=== PATIENT | male | born 2000 | race Caucasian/White ===

== ENCOUNTER 2021-07-10 23:15 | Emergency (ER) | payer SELFPAY ==
[2021-07-10 23:18] VITALS: BP 174/109; PULSE 91; RESP 32; TEMP 36.7; O2SAT 97; BMI 31.5
[2021-07-10] MEDS: ipratropium-albuterol 3 mL Neb INHALATION (23:21)
[2021-07-10 23:22] VITALS: PULSE 87; RESP 22; O2SAT 87
[2021-07-10 23:26] VITALS: PULSE 88
[2021-07-10 23:31] VITALS: BP 152/96; PULSE 78; RESP 20; O2SAT 95
[2021-07-10 23:35] VITALS: O2SAT 95
--- NOTE | 2021-07-10 23:40 | XRR_ITS ---
PROCEDURE INFORMATION: Exam: XR Chest Exam date and time: 07/10/2021 11:40 PM Age: 21 years old Clinical indication: Dyspnea; Additional info: SOB TECHNIQUE: Imaging protocol: XR of the chest. Views: 1 view. COMPARISON: CR Chest 1 [place] [id number] 03/29/2015 11:21 PM FINDINGS: Lungs: Unremarkable. No consolidation. Pleural spaces: Unremarkable. No pleural effusion. No pneumothorax. Heart/Mediastinum: Unremarkable. No cardiomegaly. Bones/joints: Unremarkable. XR/XR chest 1V portable [id number] IMPRESSION: No acute findings.
--- NOTE | 2021-07-10 23:41 | ECG_ITS ---
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
[2021-07-10] MEDS: sodium chloride 0.9% 1,000 ML 999 ML IV (23:46)
[2021-07-11 00:13] LABS: Basophils # 0.2 10^3/uL (0.0-0.1); Basophils % 1.1 %; Eosinophils # 0.7 10^3/uL (0.0-0.8); Hematocrit 48.6 % (42.0-52.0); Hemoglobin 16.1 g/dL (11.7-16.6); Lymphocytes # 4.1 10^3/uL (0.8-4.8); Lymphocytes % 31.3 %; Mean Corpuscular HGB Conc 33.1 g/dL (30.0-36.0); Mean Corpuscular Hemoglobin 27.7 pg (28.0-34.0); Mean Corpuscular Volume 83.6 fl (80-94); Mean Platelet Volume 11.4 fL (7.4-10.4); Monocytes % 7.9 %; Neutrophils # 7.21 10^3/uL (1.8-7.7); Neutrophils % 54.4 %; Nucleated Red Blood Cells % 0 %; Platelet Count 257 10^3/cmm (130-400); Red Blood Count 5.81 10^6/uL (4.1-5.3); Red Cell Distribution Width 12.2 % (12.1-15.1); White Blood Count 13.2 10^3/uL (4.0-10.0)
[2021-07-11 00:21] LABS: D Dimer <= 0.27 ug/mIFEU (0-0.59)
[2021-07-11 00:33] LABS: Lactate (Lactic Acid level) 1.8 mmol/L (0.5-2.2)
[2021-07-11 00:41] LABS: NT Pro B Type Natriuretic Pept 55 pg/mL (0-125); Procalcitonin 0.05 ng/mL (0-0.5)
--- NOTE | 2021-07-11 00:42 | W.ED.ALLEREA ---
HPI - Allergic Reaction General: Chief complaint: Allergic Reaction Stated complaint: Asthma attack Time Seen by Provider: 07/10/21 23:20 History of Present Illness: HPI narrative: 21-year-old male with a history of asthma since childhood. He, though, has not had an asthma attack for the past 4 to 6 years he notes some asthma symptoms 2 days ago while cleaning out a house. He was not exposed to that house for very long. He spent most of the day there today, with worsening respiratory symptoms throughout the day. He presents in respiratory distress with wheezing, and decreased air movement. He did not have rescue inhaler to use. Onset (ago): hour(s) Exposure: unknown Known history of allergy to: Multiple allergies Associated symptoms: Reports difficulty breathing and nausea; Deny dysphagia, facial swelling, lip swelling, rash, tongue swelling or vomiting Severity: severe Treatment prior to arrival: none Previous Allergic Reaction History: other Review of Systems Const: Denies: fever(s) or chills Eyes: Denies: change in vision Card: Reports: chest pain; Denies: palpitations Resp: Reports: dyspnea and non-productive cough; Denies: productive cough GI: Reports: nausea; Denies: vomiting or dysphagia All/Imm: Denies: tongue swelling or facial swelling Physical Exam Const: COMMON NORMALS: patient oriented x3 and alert GENERAL APPEARANCE: in distress and ill appearing HENMT: COMMON NORMALS: normocephalic and atraumatic HEAD & SCALP: normocephalic and atraumatic Chest: COMMONS NORMALS: normal inspection of the chest Resp: EFFORT & INSPECTION: Yes tachypneic, Yes respiratory distress and Yes uses accessory muscles AUSCULTATION: wheezes Cardio: COMMON NORMALS: regular rhythm RATE: tachycardic RHYTHM: regular rhythm GI: COMMON NORMALS: Normal to inspection, nondistended, normoactive bowel sounds present and Soft to palpation PALPATION: Yes Soft to palpation Extremity: COMMON NORMALS: normal to inspection Neuro: COMMON NORMALS: patient oriented x3 SENSORIUM/ORIENTATION: Yes alert Course Vital Signs: Vital signs: Vital Signs Temperature 98.1 F 07/10/21 23:18 Pulse Rate 77 07/11/21 02:19 Respiratory Rate 20 H 07/11/21 02:19 Blood Pressure 131/82 07/11/21 02:19 Pulse Oximetry 99 07/11/21 02:19 MDM - Allergic Reaction MDM Narrative: Medical decision making narrative: Patient is improved significantly after albuterol/Atrovent treatment. Current vital signs are pulse ox 97% with 18 respirations. Sinus rhythm 84, blood pressure 125/72. He still having some mild chest discomfort, but much improved after breathing treatment. He is received Solu-Medrol. No signs of rebound currently. He does not have a rescue inhaler at home, so he will be sent home with 1. We will also place him on a steroid burst. Chest x-ray is negative. Lab Data: Labs: Lab Results 07/10/21 07/10/21 07/10/21 Range/Units 23:20 23:20 23:20 WBC 13.2 H (4.0-10.0) 10^3/ uL RBC 5.81 H (4.1-5.3) 10^6/u L Hgb 16.1 (11.7-16.6) g/dL Hct 48.6 (42.0-52.0) % MCV 83.6 (80-94) fl MCH 27.7 L (28.0-34.0) pg MCHC 33.1 (30.0-36.0) g/dL RDW 12.2 (12.1-15.1) % Plt Count 257 (130-400) 10^3/c mm MPV 11.4 H (7.4-10.4) fL Neut % (Auto) 54.4 % Lymph % (Auto) 31.3 % [place] % (Auto) 7.9 % Eos % (Auto) 5.0 % Baso % (Auto) 1.1 % Neut # (Auto) 7.21 (1.8-7.7) 10^3/u L Lymph # (Auto) 4.1 (0.8-4.8) 10^3/u L [place] # (Auto) 1.0 H (0.2-0.9) 10^3/u L Eos # (Auto) 0.7 (0.0-0.8) 10^3/u L Baso # (Auto) 0.2 H (0.0-0.1) 10^3/u L Nucleated RBC % (a uto) 0 % Nucleated RBCs # 0.0 /100WBC D-Dimer <= 0.27 (0-0.59) ug/mIFE U Sodium 137 (136-145) mmol/L Potassium 3.9 (3.5-5.1) mmol/L Chloride 99 (98-107) mmol/L Carbon Dioxide 25 (22-29) mmol/L Anion Gap 16.9 (5-19) BUN 10 (6-20) mg/dL Creatinine 1.1 (0.7-1.2) mg/dL GFR Calculation 84.5 L (90-130) mL/min Glucose 79 (65-115) mg/dL Calculated Osmolal ity 282 L (285-295) mOsm/k g Lactate (0.5-2.2) mmol/L Calcium 9.4 (8.5-10.5) mg/dL Total Bilirubin 0.4 (0.15-1.2) mg/dL AST 18 (0-40) U/L ALT 23 (0-41) U/L Alkaline Phosphata se 98 (40-130) IU/L Creatine Kinase 112 (39-308) U/L C-Reactive Protein 3.8 (0.0-4.9) mg/L NT-Pro-B Natriuret Pep 55 (0-125) pg/mL Total Protein 7.1 (6.6-8.7) g/dL Albumin 4.3 (3.5-5.2) g/dL Globulin 2.8 (1.3-4.6) g/dL Procalcitonin 0.05 (0-0.5) ng/mL Urine Color (Yellow) Urine Appearance (CLEAR) Urine pH (5-7) Ur Specific Gravit y (1.005-1.030) Urine Protein (Negative) Urine Glucose (UA) (Normal) Urine Ketones (Negative) Urine Blood (Negative) Urine Nitrate (Negative) Urine Bilirubin (Negative) Urine Urobilinogen (Negative) mg/dL Ur Leukocyte Shannon ase (Negative) Urine Opiates Scre en (Negative) ng/mL Ur Barbiturates Sc reen (Negative) ng/mL Ur Phencyclidine S crn (Negative) ng/mL Ur Amphetamines Sc reen (Negative) ng/mL U Benzodiazepines Scrn (Negative) ng/mL Urine Cocaine Scre en (Negative) ng/mL U Marijuana (THC) Screen (Negative) ng/mL 07/10/21 07/11/21 07/11/21 Range/Units 23:20 00:40 00:40 WBC (4.0-10.0) 10^3/ uL RBC (4.1-5.3) 10^6/u L Hgb (11.7-16.6) g/dL Hct (42.0-52.0) % MCV (80-94) fl MCH (28.0-34.0) pg MCHC (30.0-36.0) g/dL RDW (12.1-15.1) % Plt Count (130-400) 10^3/c mm MPV (7.4-10.4) fL Neut % (Auto) % Lymph % (Auto) % [place] % (Auto) % Eos % (Auto) % Baso % (Auto) % Neut # (Auto) (1.8-7.7) 10^3/u L Lymph # (Auto) (0.8-4.8) 10^3/u L [place] # (Auto) (0.2-0.9) 10^3/u L Eos # (Auto) (0.0-0.8) 10^3/u L Baso # (Auto) (0.0-0.1) 10^3/u L Nucleated RBC % (a uto) % Nucleated RBCs # /100WBC D-Dimer (0-0.59) ug/mIFE U Sodium (136-145) mmol/L Potassium (3.5-5.1) mmol/L Chloride (98-107) mmol/L Carbon Dioxide (22-29) mmol/L Anion Gap (5-19) BUN (6-20) mg/dL Creatinine (0.7-1.2) mg/dL GFR Calculation (90-130) mL/min Glucose (65-115) mg/dL Calculated Osmolal ity (285-295) mOsm/k g Lactate 1.8 (0.5-2.2) mmol/L Calcium (8.5-10.5) mg/dL Total Bilirubin (0.15-1.2) mg/dL AST (0-40) U/L ALT (0-41) U/L Alkaline Phosphata se (40-130) IU/L Creatine Kinase (39-308) U/L C-Reactive Protein (0.0-4.9) mg/L NT-Pro-B Natriuret Pep (0-125) pg/mL Total Protein (6.6-8.7) g/dL Albumin (3.5-5.2) g/dL Globulin (1.3-4.6) g/dL Procalcitonin (0-0.5) ng/mL Urine Color Yellow (Yellow) Urine Appearance Clear (CLEAR) Urine pH 7 (5-7) Ur Specific Gravit y 1.015 (1.005-1.030) Urine Protein Neg (Negative) Urine Glucose (UA) Norm (Normal) Urine Ketones Negative (Negative) Urine Blood Neg (Negative) Urine Nitrate Negative (Negative) Urine Bilirubin Neg (Negative) Urine Urobilinogen Norm (Negative) mg/dL Ur Leukocyte [place] ase Negative (Negative) Urine Opiates Scre en Negative (Negative) ng/mL Ur Barbiturates Sc reen Negative (Negative) ng/mL Ur Phencyclidine S crn Negative (Negative) ng/mL Ur Amphetamines Sc reen Negative (Negative) ng/mL U Benzodiazepines Scrn Negative (Negative) ng/mL Urine Cocaine Scre en Negative (Negative) ng/mL U Marijuana (THC) Screen Negative (Negative) ng/mL Discharge Plan Discharge Patient Disposition: Home Clinical Impression: Acute asthma exacerbation Qualifiers: Asthma persistence: unspecified Condition: Stable Prescriptions: New Medrol (Homer) 4 mg tablets,dose pack See Rx Instructions .ROUTE .COMPLEX Qty: 21 RF: 0 Discharge Orders: Discharge ED (Routine); Ordered 07/11/21 Ordered By: Abiodun Crum Discharge Diet: Advance as tolerated Discharge Activity: Increase activity as tolerated Patient Instructions: Asthma (ED) Activity Restrictions/Additional Instructions: Return for return of shortness of breath, wheezing, chest discomfort, any other concerns despite treatment. Use your rescue inhaler every 4 hours while awake for the next 24 hours, then as needed. Coding Level of Care Code ED [employer] for Clarence Fwd Exam Detailed
[2021-07-11 00:51] LABS: Add Urine Microscopic? NO; Charge for UA Resulting for Rev
[2021-07-11 00:52] LABS: Alanine Aminotransferase 23 U/L (0-41); Albumin Level 4.3 g/dL (3.5-5.2); Alkaline Phosphatase 98 IU/L (40-130); Aspartate Amino Transferase 18 U/L (0-40); Blood Urea Nitrogen 10 mg/dL (6-20); C Reactive Protein 3.8 mg/L (0.0-4.9); Calcium 9.4 mg/dL (8.5-10.5); Carbon Dioxide 25 mmol/L (22-29); Chloride 99 mmol/L (98-107); Creatine Phosphokinase 112 U/L (39-308); Globulin 2.8 g/dL (1.3-4.6); Glomerular Filtration Rate 84.5 mL/min (90-130); Glucose 79 mg/dL (65-115); Osmolality Calculated 282 mOsm/kg (285-295); Sodium 137 mmol/L (136-145); Total Bilirubin 0.4 mg/dL (0.15-1.2); Total Protein 7.1 g/dL (6.6-8.7)
[2021-07-11 00:56] LABS: Bilirubin Urine Neg (Negative); Blood Urine Neg (Negative); Glucose Urine UA Norm (Normal); Ketones Urine Negative (Negative); Leukocyte Esterase Urine Negative (Negative); Nitrate Urine Negative (Negative); Protein Urine Neg (Negative); Specific Gravity, Urine 1.015 (1.005-1.030); Urine Appearance Clear (CLEAR); Urine Color Yellow (Yellow); Urobilinogen Urine Norm (Negative); pH Urine 7 (5-7)
[2021-07-11 00:59] LABS: Anion Gap 16.9 (5-19); Potassium 3.9 mmol/L (3.5-5.1)
[2021-07-11 01:04] LABS: Amphetamines Screen Urine Negative (Negative); Barbiturates Screen Urine Negative (Negative); Benzodiazepines Screen Urine Negative (Negative); Cocaine Screen Urine Negative (Negative); Opiate Screen Urine Negative (Negative); PCP Screen Urine Negative (Negative); THC Screen Urine Negative (Negative)
[2021-07-11] MEDS: ketorolac 30 mg/mL INJ 15 MG IVP (01:07)
[2021-07-11 02:19] VITALS: BP 131/82; PULSE 77; RESP 20; O2SAT 99
== END 2021-07-11 02:13 | disposition home or self-care (01) ==
PROVIDERS: Emergency Provider Emergency Medicine
DX: J45.901 Unspecified asthma with (acute) exacerbation (principal)
CPT/HCPCS: 71045; 80053; 80306; 81003; 82550; 83605; 83880; 84145; 85025; 85378; 86140; 93005; 94640; 96361; 96374; 96375; 99284; J1885; J2930; J7030

== ENCOUNTER 2021-12-06 07:20 | Emergency (ER) | payer SELFPAY ==
[2021-12-06 07:47] VITALS: BP 155/100; PULSE 75; RESP 15; TEMP 36.6; O2SAT 95; BMI 34.4
--- NOTE | 2021-12-06 07:53 | W.ED.NAVMDI ---
Documented by User: HARDEEP Gruber 12/06/21 09:29 HPI - Nausea/Vomiting/Diarrhea General: Chief complaint: Nausea/Vomiting/Diarrhea Stated complaint: N/V non stop for 5 days Time Seen by Provider: 12/06/21 07:25 Source: patient Mode of arrival: ambulatory Limitations: no limitations History of Present Illness: Patient is a 21-year-old male who presents to ED today with a complaint of nausea, vomiting, diarrhea over the past 4 days. Patient states he vomits/dry heaves after eating anything. He states he is having approximately 3-4 episodes of non-bloody diarrhea daily. No blood noted to his emesis. He is not running fevers. When asked about abdominal pain he states is stomach feels bubbly . No sick contacts. No poor food exposures. No previous episodes. No previous abdominal surgeries. States he feels slightly dizzy and weak secondary to not eating much over the last few days. MD elicited complaint: nausea, vomiting and diarrhea Onset (ago): day(s) Associated nausea: Yes Associated abdominal pain: Yes Location of pain: Diffuse Pain consistency: intermittent Severity: moderate Exacerbating factors: eating Relieving factors: none Associated symtoms: Reports dizziness and nausea; Denies change in vision, chest pain, dysuria, fatigue, headache(s) or malaise Review of Systems Const: Denies: fever(s), chills, body aches, fatigue or malaise Eyes: Denies: change in vision or blurry vision Card: Denies: chest pain Resp: Denies: dyspnea GI: Reports: abdominal pain, nausea, vomiting and diarrhea; Denies: hematemesis, pain on defecation, hematochezia or melena : Denies: flank pain, difficulty urinating or dysuria Musc: Denies: neck pain, back pain or joint pain Skin/Breast: Denies: rash Neuro: Reports: dizziness; Denies: headache(s), numbness in extremities, weakness in extremities, sensory changes, lack of coordination, difficulty walking, confusion, behavioral changes, Slurred speech present or difficulty communicating thoughts Physical Exam Const: COMMON NORMALS: no acute distress, patient oriented x3, no limitations and alert GENERAL APPEARANCE: cooperative NUTRITIONAL APPEARANCE: overweight ORIENTATION/CONSCIOUSNESS: Yes awake, Yes oriented to person, Yes oriented to place and Yes oriented to time HENMT: COMMON NORMALS: normocephalic and atraumatic HEAD & SCALP: normocephalic and atraumatic Resp: COMMON NORMALS: normal respiratory effort and clear to auscultation bilaterally AUSCULTATION: clear to auscultation bilaterally Cardio: COMMON NORMALS: regular rate and regular rhythm RATE: regular rate RHYTHM: regular rhythm GI: COMMON NORMALS: Normal to inspection, nondistended, normoactive bowel sounds present, Soft to palpation, No hepatosplenomegaly present and no masses INSPECTION: Yes normal to inspection PALPATION: Yes Soft to palpation, Yes Tenderness to palpation present (GI) (very mild diffusely-non surgical abdomen), No Guarding due to palpation present (GI), No Rigid due to palpation and Yes No hepatosplenomegaly present : COMMON NORMALS: Yes no CVA tenderness BLADDER/KIDNEY EXAM: Yes no CVA tenderness Back/Pelvis: COMMON NORMALS: no CVA tenderness Extremity: COMMON NORMALS: normal to inspection GENERAL: Yes normal exam except as noted Neuro: GARRET COMA SCALE: document GCS findings Garret coma scale eye opening: Spontaneous Garret coma scale verbal response: Orientated Garret coma scale motor response: Obey commands [place] coma scale total score: 15 COMMON NORMALS: patient oriented x3 SENSORIUM/ORIENTATION: Yes alert, Yes oriented to person, Yes oriented to place and Yes oriented to time Skin: COMMON NORMALS: no rashes or lesions noted GENERAL SKIN EXAM: no rashes or lesions noted Course Vital Signs: Vital signs: Vital Signs Temperature 97.8 F 12/06/21 07:47 Pulse Rate 75 12/06/21 07:47 Respiratory Rate 15 12/06/21 07:47 Blood Pressure 155/100 12/06/21 07:47 Pulse Oximetry 95 12/06/21 07:47 MDM - Nausea/Vomiting/Diarrhea Medical Decision Making Patient clinically appears in no acute distress. He has not had any episodes of vomiting or diarrhea while here. His vital signs are stable. Lab work overall is unremarkable. He was given fluids and IV Zofran and states his nausea has improved. At this point we will treat patient conservatively at home for possible gastroenteritis/enterocolitis-like symptoms. Strict return ED precautions verbally given to patient. Lab Data : 12/06/21 08:06 12/06/21 08:06 Laboratory Results WBC 7.7 10^3/uL (4.0-10.0) 12/06/21 08:06 RBC 6.18 10^6/uL (4.1-5.3) H 12/06/21 08:06 Hgb 17.2 g/dL (11.7-16.6) H 12/06/21 08:06 Hct 52.0 % (42.0-52.0) 12/06/21 08:06 MCV 84.1 fl (80-94) 12/06/21 08:06 MCH 27.8 pg (28.0-34.0) L 12/06/21 08:06 MCHC 33.1 g/dL (30.0-36.0) 12/06/21 08:06 RDW 12.4 % (12.1-15.1) 12/06/21 08:06 Plt Count 283 10^3/cmm (130-400) 12/06/21 08:06 MPV 10.7 fL (7.4-10.4) H 12/06/21 08:06 Neut % (Auto) 52.0 % 12/06/21 08:06 Lymph % (Auto) 35.5 % 12/06/21 08:06 [place] % (Auto) 7.7 % 12/06/21 08:06 Eos % (Auto) 3.4 % 12/06/21 08:06 Baso % (Auto) 1.0 % 12/06/21 08:06 Neut # (Auto) 4.01 10^3/uL (1.8-7.7) 12/06/21 08:06 Lymph # (Auto) 2.7 10^3/uL (0.8-4.8) 12/06/21 08:06 [place] # (Auto) 0.6 10^3/uL (0.2-0.9) 12/06/21 08:06 Eos # (Auto) 0.3 10^3/uL (0.0-0.8) 12/06/21 08:06 Baso # (Auto) 0.1 10^3/uL (0.0-0.1) 12/06/21 08:06 Nucleated RBC % (auto) 0 % 12/06/21 08:06 Nucleated RBCs # 0.0 /100WBC 12/06/21 08:06 Sodium 137 mmol/L (136-145) 12/06/21 08:06 Potassium 3.9 mmol/L (3.5-5.1) 12/06/21 08:06 Chloride 100 mmol/L (98-107) 12/06/21 08:06 Carbon Dioxide 28 mmol/L (22-29) 12/06/21 08:06 Anion Gap 12.9 (5-19) 12/06/21 08:06 BUN 9 mg/dL (6-20) 12/06/21 08:06 Creatinine 0.8 mg/dL (0.7-1.2) 12/06/21 08:06 GFR Calculation 122.0 mL/min (90-130) 12/06/21 08:06 Glucose 86 mg/dL (65-115) 12/06/21 08:06 Calculated Osmolality 282 mOsm/kg (285-295) L 12/06/21 08:06 Calcium 9.3 mg/dL (8.5-10.5) 12/06/21 08:06 Total Bilirubin 0.3 mg/dL (0.15-1.2) 12/06/21 08:06 AST 30 U/L (0-40) 12/06/21 08:06 ALT 42 U/L (0-41) H 12/06/21 08:06 Alkaline Phosphatase 122 IU/L (40-130) 12/06/21 08:06 Total Protein 7.4 g/dL (6.6-8.7) 12/06/21 08:06 Albumin 4.5 g/dL (3.5-5.2) 12/06/21 08:06 Globulin 2.9 g/dL (1.3-4.6) 12/06/21 08:06 Lipase 70 U/L (13-60) H 12/06/21 08:06 Urine Color Yellow (Yellow) 12/06/21 09:50 Urine Appearance Clear (CLEAR) 12/06/21 09:50 Urine pH 5 (5-7) 12/06/21 09:50 Ur Specific [place] 1.025 (1.005-1.030) 12/06/21 09:50 Urine Protein Neg (Negative) 12/06/21 09:50 Urine Glucose (UA) Norm (Normal) 12/06/21 09:50 Urine Ketones Negative (Negative) 12/06/21 09:50 Urine Blood Neg (Negative) 12/06/21 09:50 Urine Nitrate Negative (Negative) 12/06/21 09:50 Urine Bilirubin Neg (Negative) 12/06/21 09:50 Urine Urobilinogen Norm mg/dL (Negative) 12/06/21 09:50 Ur Leukocyte Esterase Negative (Negative) 12/06/21 09:50 Discharge Plan Discharge Patient Disposition: Home Clinical Impression: Gastroenteritis Condition: Stable Prescriptions: New Zofran 4 mg tablet 4 mg PO Q6H PRN (Reason: nausea and vomiting) Qty: 14 0RF No Action Medrol (Homer) 4 mg tablets,dose pack See Rx Instructions .ROUTE .COMPLEX Qty: 21 0RF Rx Instructions: orally per package directions Discharge Orders: Discharge ED (Routine); Ordered 12/06/21 Ordered By: Mitzi Love Patient Instructions: Gastroenteritis (ED) Activity Restrictions/Additional Instructions: As we discussed you may use the Zofran as needed for nausea and vomiting. Bennett liquid diet over the next 24 to 48 hours and advance as tolerated. You need to return to the emergency department for uncontrollable episodes of vomiting or diarrhea, increasing weakness, blood in your vomit or stool, fevers, severe abdominal pains, or any other concerns you may have. I hope you begin to feel better soon. Coding Level of Care Code ED Associate Professor Of Radiology for Chg Fwd Exam Comprehensive Documented by User: Maurice Brown DO 12/06/21 12:54 HPI - Nausea/Vomiting/Diarrhea General: Chief complaint: Nausea/Vomiting/Diarrhea Stated complaint: N/V non stop for 5 days Time Seen by Provider: 12/06/21 07:25 Physical Exam Neuro: GARRET COMA SCALE: document GCS findings [place] coma scale total score: 15 Course Vital Signs: Vital signs: Vital Signs Temperature 97.8 F 12/06/21 07:47 Pulse Rate 75 12/06/21 07:47 Respiratory Rate 15 12/06/21 07:47 Blood Pressure 155/100 12/06/21 07:47 Pulse Oximetry 95 12/06/21 07:47 MDM - Nausea/Vomiting/Diarrhea Medical Decision Making Patient clinically appears in no acute distress. He has not had any episodes of vomiting or diarrhea while here. His vital signs are stable. Lab work overall is unremarkable. He was given fluids and IV Zofran and states his nausea has improved. At this point we will treat patient conservatively at home for possible gastroenteritis/enterocolitis-like symptoms. Strict return ED precautions verbally given to patient. Chart reviewed and patient discussed with midlevel. Agree with assessment and plan. Lab Data : 12/06/21 08:06 12/06/21 08:06 Laboratory Results WBC 7.7 10^3/uL (4.0-10.0) 12/06/21 08:06 RBC 6.18 10^6/uL (4.1-5.3) H 12/06/21 08:06 Hgb 17.2 g/dL (11.7-16.6) H 12/06/21 08:06 Hct 52.0 % (42.0-52.0) 12/06/21 08:06 MCV 84.1 fl (80-94) 12/06/21 08:06 MCH 27.8 pg (28.0-34.0) L 12/06/21 08:06 MCHC 33.1 g/dL (30.0-36.0) 12/06/21 08:06 RDW 12.4 % (12.1-15.1) 12/06/21 08:06 Plt Count 283 10^3/cmm (130-400) 12/06/21 08:06 MPV 10.7 fL (7.4-10.4) H 12/06/21 08:06 Neut % (Auto) 52.0 % 12/06/21 08:06 Lymph % (Auto) 35.5 % 12/06/21 08:06 [place] % (Auto) 7.7 % 12/06/21 08:06 Eos % (Auto) 3.4 % 12/06/21 08:06 Baso % (Auto) 1.0 % 12/06/21 08:06 Neut # (Auto) 4.01 10^3/uL (1.8-7.7) 12/06/21 08:06 Lymph # (Auto) 2.7 10^3/uL (0.8-4.8) 12/06/21 08:06 [place] # (Auto) 0.6 10^3/uL (0.2-0.9) 12/06/21 08:06 Eos # (Auto) 0.3 10^3/uL (0.0-0.8) 12/06/21 08:06 Baso # (Auto) 0.1 10^3/uL (0.0-0.1) 12/06/21 08:06 Nucleated RBC % (auto) 0 % 12/06/21 08:06 Nucleated RBCs # 0.0 /100WBC 12/06/21 08:06 Sodium 137 mmol/L (136-145) 12/06/21 08:06 Potassium 3.9 mmol/L (3.5-5.1) 12/06/21 08:06 Chloride 100 mmol/L (98-107) 12/06/21 08:06 Carbon Dioxide 28 mmol/L (22-29) 12/06/21 08:06 Anion Gap 12.9 (5-19) 12/06/21 08:06 BUN 9 mg/dL (6-20) 12/06/21 08:06 Creatinine 0.8 mg/dL (0.7-1.2) 12/06/21 08:06 GFR Calculation 122.0 mL/min (90-130) 12/06/21 08:06 Glucose 86 mg/dL (65-115) 12/06/21 08:06 Calculated Osmolality 282 mOsm/kg (285-295) L 12/06/21 08:06 Calcium 9.3 mg/dL (8.5-10.5) 12/06/21 08:06 Total Bilirubin 0.3 mg/dL (0.15-1.2) 12/06/21 08:06 AST 30 U/L (0-40) 12/06/21 08:06 ALT 42 U/L (0-41) H 12/06/21 08:06 Alkaline Phosphatase 122 IU/L (40-130) 12/06/21 08:06 Total Protein 7.4 g/dL (6.6-8.7) 12/06/21 08:06 Albumin 4.5 g/dL (3.5-5.2) 12/06/21 08:06 Globulin 2.9 g/dL (1.3-4.6) 12/06/21 08:06 Lipase 70 U/L (13-60) H 12/06/21 08:06 Urine Color Yellow (Yellow) 12/06/21 09:50 Urine Appearance Clear (CLEAR) 12/06/21 09:50 Urine pH 5 (5-7) 12/06/21 09:50 Ur Specific [place] 1.025 (1.005-1.030) 12/06/21 09:50 Urine Protein Neg (Negative) 12/06/21 09:50 Urine Glucose (UA) Norm (Normal) 12/06/21 09:50 Urine Ketones Negative (Negative) 12/06/21 09:50 Urine Blood Neg (Negative) 12/06/21 09:50 Urine Nitrate Negative (Negative) 12/06/21 09:50 Urine Bilirubin Neg (Negative) 12/06/21 09:50 Urine Urobilinogen Norm mg/dL (Negative) 12/06/21 09:50 Ur Leukocyte Esterase Negative (Negative) 12/06/21 09:50 Discharge Plan Discharge Patient Disposition: Home Clinical Impression: Gastroenteritis Condition: Stable Prescriptions: New Zofran 4 mg tablet 4 mg PO Q6H PRN (Reason: nausea and vomiting) Qty: 14 0RF No Action Medrol (Homer) 4 mg tablets,dose pack See Rx Instructions .ROUTE .COMPLEX Qty: 21 0RF Rx Instructions: orally per package directions Discharge Orders: Discharge ED (Routine); Ordered 12/06/21 Ordered By: Mitzi Love Patient Instructions: Gastroenteritis (ED) Activity Restrictions/Additional Instructions: As we discussed you may use the Zofran as needed for nausea and vomiting. Bennett liquid diet over the next 24 to 48 hours and advance as tolerated. You need to return to the emergency department for uncontrollable episodes of vomiting or diarrhea, increasing weakness, blood in your vomit or stool, fevers, severe abdominal pains, or any other concerns you may have. I hope you begin to feel better soon. Coding Level of Care Code ED Associate Professor Of Radiology for Clarence Fwtracey Exam Comprehensive
[2021-12-06 08:18] LABS: Basophils # 0.1 10^3/uL (0.0-0.1); Eosinophils # 0.3 10^3/uL (0.0-0.8); Eosinophils % 3.4 %; Hemoglobin 17.2 g/dL (11.7-16.6); Lymphocytes # 2.7 10^3/uL (0.8-4.8); Lymphocytes % 35.5 %; Mean Corpuscular HGB Conc 33.1 g/dL (30.0-36.0); Mean Corpuscular Hemoglobin 27.8 pg (28.0-34.0); Mean Corpuscular Volume 84.1 fl (80-94); Mean Platelet Volume 10.7 fL (7.4-10.4); Monocytes # 0.6 10^3/uL (0.2-0.9); Monocytes % 7.7 %; Neutrophils # 4.01 10^3/uL (1.8-7.7); Nucleated Red Blood Cells % 0 %; Platelet Count 283 10^3/cmm (130-400); Red Blood Count 6.18 10^6/uL (4.1-5.3); Red Cell Distribution Width 12.4 % (12.1-15.1); White Blood Count 7.7 10^3/uL (4.0-10.0)
--- NOTE | 2021-12-06 08:33 | PC.NURSE ---
Kenia given IVP by Genie Vidal RN
[2021-12-06 08:50] LABS: Alanine Aminotransferase 42 U/L (0-41); Albumin Level 4.5 g/dL (3.5-5.2); Alkaline Phosphatase 122 IU/L (40-130); Anion Gap 12.9 (5-19); Aspartate Amino Transferase 30 U/L (0-40); Blood Urea Nitrogen 9 mg/dL (6-20); Calcium 9.3 mg/dL (8.5-10.5); Carbon Dioxide 28 mmol/L (22-29); Chloride 100 mmol/L (98-107); Globulin 2.9 g/dL (1.3-4.6); Glucose 86 mg/dL (65-115); Lipase 70 U/L (13-60); Osmolality Calculated 282 mOsm/kg (285-295); Potassium 3.9 mmol/L (3.5-5.1); Sodium 137 mmol/L (136-145); Total Bilirubin 0.3 mg/dL (0.15-1.2); Total Protein 7.4 g/dL (6.6-8.7)
[2021-12-06 10:04] LABS: Add Urine Microscopic? NO; Charge for UA Resulting for Rev
[2021-12-06 10:10] LABS: Bilirubin Urine Neg (Negative); Blood Urine Neg (Negative); Glucose Urine UA Norm (Normal); Ketones Urine Negative (Negative); Leukocyte Esterase Urine Negative (Negative); Nitrate Urine Negative (Negative); Protein Urine Neg (Negative); Specific Gravity, Urine 1.025 (1.005-1.030); Urine Appearance Clear (CLEAR); Urine Color Yellow (Yellow); Urobilinogen Urine Norm (Negative); pH Urine 5 (5-7)
== END 2021-12-06 10:29 | disposition home or self-care (01) ==
PROVIDERS: Family Medicine; Emergency Provider Physician Assistant
DX: K52.9 Noninfective gastroenteritis and colitis, unspecified (principal)
CPT/HCPCS: 80053; 81003; 83690; 85025; 99283

== ENCOUNTER 2022-04-21 07:29 | Emergency (ER) | payer SELFPAY ==
[2022-04-21 07:35] VITALS: BP 131/87; PULSE 107; RESP 18; TEMP 36.7; O2SAT 95; BMI 35.4
--- NOTE | 2022-04-21 07:56 | XR_ITS ---
WS: [id number] Portable AP upright chest, 04/21/2022 Clinical Data: dyspnea/cough Comparison: Portable chest, 07/11/2021. Findings: No nodules, masses or effusions are seen. The heart is normal. The pulmonary vascularity is not increased. No pneumonia or pneumothorax is seen. Monitor leads are on the chest wall. XR/XR chest 1V portable 12709 Impression: Negative chest.
[2022-04-21 08:09] LABS: Basophils # 0.1 10^3/uL (0.0-0.1); Basophils % 1.1 %; Eosinophils # 0.5 10^3/uL (0.0-0.8); Eosinophils % 4.8 %; Hematocrit 48.8 % (42.0-52.0); Hemoglobin 16.5 g/dL (11.7-16.6); Lymphocytes # 1.9 10^3/uL (0.8-4.8); Lymphocytes % 18.5 %; Mean Corpuscular HGB Conc 33.8 g/dL (30.0-36.0); Mean Corpuscular Hemoglobin 27.5 pg (28.0-34.0); Mean Corpuscular Volume 81.2 fl (80-94); Mean Platelet Volume 11.2 fL (7.4-10.4); Monocytes # 0.8 10^3/uL (0.2-0.9); Monocytes % 8.2 %; Neutrophils # 6.87 10^3/uL (1.8-7.7); Neutrophils % 67.1 %; Nucleated Red Blood Cells % 0 %; Platelet Count 228 10^3/cmm (130-400); Red Blood Count 6.01 10^6/uL (4.1-5.3); Red Cell Distribution Width 12.7 % (12.1-15.1); White Blood Count 10.2 10^3/uL (4.0-10.0)
[2022-04-21] MEDS: ipratropium-albuterol 3 mL Neb INHALATION (08:12)
[2022-04-21 08:16] VITALS: PULSE 80; RESP 16; O2SAT 93
[2022-04-21 08:17] VITALS: PULSE 87
[2022-04-21 08:25] LABS: Alanine Aminotransferase 41 U/L (0-41); Albumin Level 4.6 g/dL (3.5-5.2); Alkaline Phosphatase 120 IU/L (40-130); Anion Gap 15.9 (5-19); Aspartate Amino Transferase 28 U/L (0-40); Blood Urea Nitrogen 9 mg/dL (6-20); Calcium 9.5 mg/dL (8.5-10.5); Carbon Dioxide 25 mmol/L (22-29); Chloride 100 mmol/L (98-107); Globulin 3.2 g/dL (1.3-4.6); Glomerular Filtration Rate 94.3 mL/min (90-130); Glucose 96 mg/dL (65-115); Osmolality Calculated 283 mOsm/kg (285-295); Potassium 3.9 mmol/L (3.5-5.1); Sodium 137 mmol/L (136-145); Total Bilirubin 0.4 mg/dL (0.15-1.2); Total Protein 7.8 g/dL (6.6-8.7)
--- NOTE | 2022-04-21 09:21 | ED_ITS ---
HPI - SOB/Dyspnea General: Chief Complaint: Shortness of Breath/Dyspnea Stated Complaint: SOB Time Seen by Provider: 04/21/22 07:32 Source: patient Mode of arrival: ambulatory Limitations: no limitations History of Present Illness: HPI Narrative: 21-year-old male presents emergency room states that about 4 days ago began having wheezing felt like he was having a asthma attack . He has had increased production of clear mucus. He has not had any fever sweats chills nausea v omiting or diarrhea. No anosmia no diarrhea. He does not use any inhaled medications at home. MD elicited complaint: shortness of breath, cough and asthma attack Pertinent past history: asthma Onset (ago): day(s) (4) Timing: intermittent and improved Severity: severe Exacerbating factors: exertion and coughing Relieving factors: rest and bronchodilators Known history of: asthma Associated symptoms: Reports chest congestion and cough; Deny abdominal pain, chest pain, diaphoresis, dizziness, extremity pain, fever(s), hemoptysis, lightheadedness, myalgias, nausea, orthopnea, palpitations, paresthesias, polydipsia, polyuria, rash, sense of impending doom, syncope or vomiting Treatment prior to arrival: none Review of Systems Const: Denies: fever(s), chills, fatigue, malaise or diaphoresis ENMT: Denies: throat pain, ear or mastoid pain, nasal discharge or nasal congestion Card: Denies: chest pain, palpitations, lightheadedness, syncope or orthopnea Resp: Reports: dyspnea, productive cough, wheezing and chest congestion; Denies: hemoptysis GI: Denies: abdominal pain, nausea or vomiting : Denies: flank pain, difficulty urinating, dysuria, urinary frequency or urinary urgency Musc: Denies: extremity pain Skin/Breast: Denies: rash or pruritus Neuro: Denies: dizziness Endo: Denies: polyuria or polydipsia PFSH ED 2 PFSH: Medical History Asthma Social History Smoking and tobacco status: never smoked Alcohol intake: unknown Physical Exam Const: GENERAL APPEARANCE: cooperative and comfortable ORIENTATION/CONSCIOUSNESS: Yes awake, Yes oriented to person, Yes oriented to place and Yes oriented to time HENMT: COMMON NORMALS: normocephalic, atraumatic and hearing grossly normal bilaterally HEAD & SCALP: normocephalic and atraumatic Resp: COMMON NORMALS: normal respiratory effort and No use of accessory muscles AUSCULTATION: wheezes (Scant) expiratory wheezes Cardio: COMMON NORMALS: regular rhythm and No murmurs present (Cardio) RATE: tachycardic RHYTHM: regular rhythm GI: COMMON NORMALS: Soft to palpation and No hepatosplenomegaly present AUSCULTATION: Yes normoactive bowel sounds PALPATION: Yes Soft to palpation, No Tenderness to palpation present (GI), No Guarding due to palpation present (GI) and Yes No hepatosplenomegaly present Extremity: COMMON NORMALS: normal to inspection, capillary refill normal, no clubbing, cyanosis or edema, no calf tenderness and no pedal edema Neuro: SENSORIUM/ORIENTATION: Yes oriented to person, Yes oriented to place and Yes oriented to time Skin: COMMON NORMALS: no rashes or lesions noted GENERAL SKIN EXAM: no rashes or lesions noted Course Vital Signs: Vital signs: Vital Signs Temperature 98.0 F 04/21/22 07:35 Pulse Rate 87 04/21/22 08:17 Respiratory Rate 16 04/21/22 08:16 Blood Pressure 131/87 04/21/22 07:35 Pulse Oximetry 93 04/21/22 08:16 MDM - SOB/Dyspnea Medical Decision Making Chest x-ray clear. After albuterol patient is tachycardic but his lungs are clear he is having little bit of productive cough. Put him on doxycycline twice daily for 7 days also Medrol Dosepak and albuterol to use as needed follow-up early next week. Medical Records I reviewed the patient's medical records. Lab Data I reviewed the patient's lab results. : 04/21/22 08:04 04/21/22 08:04 Labs/Radiology: Radiology Impressions Chest X-Ray 04/21/22 07:56 Impression: Negative chest. Laboratory Results WBC 10.2 10^3/uL (4.0-10.0) H 04/21/22 08:04 RBC 6.01 10^6/uL (4.1-5.3) H 04/21/22 08:04 Hgb 16.5 g/dL (11.7-16.6) 04/21/22 08:04 Hct 48.8 % (42.0-52.0) 04/21/22 08:04 MCV 81.2 fl (80-94) 04/21/22 08:04 MCH 27.5 pg (28.0-34.0) L 04/21/22 08:04 MCHC 33.8 g/dL (30.0-36.0) 04/21/22 08:04 RDW 12.7 % (12.1-15.1) 04/21/22 08:04 Plt Count 228 10^3/cmm (130-400) 04/21/22 08:04 MPV 11.2 fL (7.4-10.4) H 04/21/22 08:04 Neut % (Auto) 67.1 % 04/21/22 08:04 Lymph % (Auto) 18.5 % 04/21/22 08:04 [place] % (Auto) 8.2 % 04/21/22 08:04 Eos % (Auto) 4.8 % 04/21/22 08:04 Baso % (Auto) 1.1 % 04/21/22 08:04 Neut # (Auto) 6.87 10^3/uL (1.8-7.7) 04/21/22 08:04 Lymph # (Auto) 1.9 10^3/uL (0.8-4.8) 04/21/22 08:04 [place] # (Auto) 0.8 10^3/uL (0.2-0.9) 04/21/22 08:04 Eos # (Auto) 0.5 10^3/uL (0.0-0.8) 04/21/22 08:04 Baso # (Auto) 0.1 10^3/uL (0.0-0.1) 04/21/22 08:04 Nucleated RBC % (auto) 0 % 04/21/22 08:04 Nucleated RBCs # 0.0 /100WBC 04/21/22 08:04 Sodium 137 mmol/L (136-145) 04/21/22 08:04 Potassium 3.9 mmol/L (3.5-5.1) 04/21/22 08:04 Chloride 100 mmol/L (98-107) 04/21/22 08:04 Carbon Dioxide 25 mmol/L (22-29) 04/21/22 08:04 Anion Gap 15.9 (5-19) 04/21/22 08:04 BUN 9 mg/dL (6-20) 04/21/22 08:04 Creatinine 1.0 mg/dL (0.7-1.2) 04/21/22 08:04 GFR Calculation 94.3 mL/min (90-130) 04/21/22 08:04 Glucose 96 mg/dL (65-115) 04/21/22 08:04 Calculated Osmolality 283 mOsm/kg (285-295) L 04/21/22 08:04 Calcium 9.5 mg/dL (8.5-10.5) 04/21/22 08:04 Total Bilirubin 0.4 mg/dL (0.15-1.2) 04/21/22 08:04 AST 28 U/L (0-40) 04/21/22 08:04 ALT 41 U/L (0-41) 04/21/22 08:04 Alkaline Phosphatase 120 IU/L (40-130) 04/21/22 08:04 Total Protein 7.8 g/dL (6.6-8.7) 04/21/22 08:04 Albumin 4.6 g/dL (3.5-5.2) 04/21/22 08:04 Globulin 3.2 g/dL (1.3-4.6) 04/21/22 08:04 Discharge Plan Discharge Patient Disposition: Home Clinical Impression: Asthma with exacerbation Prescriptions: New doxycycline hyclate 100 mg capsule 100 mg PO BID 10 Days Qty: 20 0RF Medrol (Homer) 4 mg tablets,dose pack See Rx Instructions .ROUTE .COMPLEX Qty: 21 0RF Rx Instructions: orally per package directions albuterol sulfate 90 mcg/actuation HFA aerosol inhaler 2 inh INHALATION Q4H PRN (Reason: shortness of breath or wheezing) Qty: 18 0RF No Action [place] Powermax Gels Day 1 tab PO QAM PRN (Reason: Sinus Symptoms) 0RF [place] Powermax Night 1 tab PO BEDTIME PRN (Reason: Sinus Symptoms) 0RF Midol 500-25 mg Tablet 2 tab PO Q6H PRN (Reason: Migraine Headache) 0RF Discharge Orders: Discharge ED (Routine); Ordered 04/21/22 Ordered By: Maurice Brown Discharge Diet: Usual diet Discharge Activity: Limit activity as instructed Patient Instructions: Opioid Safety Activity Restrictions/Additional Instructions: Avoid heat and humidity and strenuous activity for the next 5 to 7 days. Use albuterol as needed complete course steroids and antibiotics any worsening or change symptoms return to the emergency room. Coding Level of Care Code ED Film Producer for [facility] Fwd Exam Detailed
[2022-04-21 11:58] VITALS: BP 162/112; PULSE 96; RESP 20; O2SAT 92
--- NOTE | 2022-04-24 09:05 | DCPLANNER ---
Addendum entered by Lori Thakkar 06/28/22 11:20: Patient had a follow up appointment scheduled for 04.26.[address] Pace to est care - patient did attend appointment. Addendum entered by Lori Thakkar 04/24/22 09:18: manager location mailed patient both of the financial sales assistant applications to fill out and turn in. Original Note: manager location had message to speak with patient about getting established with a primary care physician. Patient stated that he did want to be established with a provider. manager location called [facility], spoke with Sandra, gave clinic patients information, a follow up appointment was scheduled for Sunday, April 26, 2022 at 3:[address] Pace. manager location called patient and gave him the appointment information.
== END 2022-04-21 11:01 | disposition home or self-care (01) ==
PROVIDERS: Emergency Provider Family Medicine
DX: J45.901 Unspecified asthma with (acute) exacerbation (principal)
CPT/HCPCS: 71045; 80053; 85025; 87070; 87205; 94640; 96374; 96375; 99284; J2930

== ENCOUNTER 2023-07-25 08:49 | Outpatient (CLI) | payer OTHER, SELFPAY ==
--- NOTE | 2023-07-25 09:01 | MR_ITS ---
WS: [id number] MRA ANGIOGRAPHY [place] HISTORY: G43.119 - Migraine with aura, intractable, without status... COMPARISON: None available. TECHNIQUE: 3-D MR angiography is performed of the [place]. All images are reviewed including source images. Small caliber distal RIGHT vertebral artery is patent. Mildly dominant LEFT vertebral artery. Normal basilar artery. Posterior cerebral and posterior communicating arteries are easily identified. Persis tent circulation on the RIGHT. No aneurysms. Intracranial portion of the internal carotid arteries are normal course and caliber. No significant a therosclerosis, stenosis or aneurysm identified. Middle and anterior cerebral arteries are both paten t with no significant disease. Anterior communicating artery is also normal. IMPRESSION: 1. No strictures or stenosis or aneurysms in the [place]. 2. Small caliber distal RIGHT vertebral artery. Dominant LEFT vertebral artery.
--- NOTE | 2023-07-25 09:30 | MR_ITS ---
WS: [id number] MRI BRAIN WITH AND WITHOUT CONTRAST HISTORY: H93.11 - Tinnitus, right ear COMPARISON: Noncontrast CT head 12/05/2012 TECHNIQUE: Multiplanar imaging performed through the brain with MultiHance 20 ml's IV. No acute infarcts are seen. Polanco-white matter differentiation is well preserved. No susceptibility artifacts or prior lacunar infarcts. Ventricles and extra-axial spaces are normal. Clivus and pituitary gland are normal. Visualized posterior fossa and brainstem are also normal. No mass or signal abnormality at the cerebe llopontine angles. Postcontrast images are negative for masses or vascular malformations. Dural venous sinuses are normal. Paranasal sinuses: Near complete opacification of the maxillary sinuses with mixed signal. Mild mucop eriosteal thickening in the ethmoid air cells. Mastoid air cells: Normal. Calvarium and scalp: Normal. IMPRESSION: 1. No acute infarct or enhancing mass. 2. No mass or signal abnormality at the cerebellopontine angles or along the internal auditory canal s. 3. Moderate opacification maxillary sinuses. No air-fluid levels.
[2023-07-25] MEDS: gadobenate dimeglumine 20 mL vial IV (09:47)
== END 2023-07-25 08:50 | disposition home or self-care (01) ==
PROVIDERS: PCP Nurse Practitioner; Visit Provider Psychiatry & Neurology Neurology
DX: G43.119 Migraine with aura, intractable, without status migrainosus (principal); H93.11 Tinnitus, right ear; R55 Syncope and collapse
CPT/HCPCS: 70544; 70553; A9577